=== PATIENT | female | born 1965 | race Caucasian/White ===

== ENCOUNTER 2018-01-21 09:26 | Emergency (ER) | payer MEDICAID ==
[~2018-01-21] VITALS: Ht 165.1 cm; Wt 165.0 kg
[~2018-01-21 09:26] MED LIST: GLUCTAB PO; IBUP800T23 PO
[2018-01-21 09:48] VITALS: BP 219/101; PULSE 100; RESP 20; TEMP 98; O2SAT 97
--- NOTE | 2018-01-21 11:57 | PD ---
HPI . miscarriage Chief Complaint: Related Problem Time Seen by Provider: 11:44 Travel History International Travel<30 days: No Contact w/Intl Traveler<30days: No Traveled to known affect area: No History of Present Illness HPI Miscarriage on 01/05. No bleeding. Continued pelvic pain. PFSH Past Medical History Cardiomyopathy: Yes High Cholesterol: Yes COPD: Yes (chronic bronchitis) Diabetes: Yes Patient Takes Glucophage: No Hypertension: Yes (takes no meds) Reproductive: Yes (hx pneumonia) Respiratory: Yes (BREATHING PROBLEMS FROM OBESITY) Thyroid Disease: Yes ?: Not LMP: 07/2018 : 3 Para: 3 Tubal Ligation: Yes Past Surgical History Abdominal Surgery: Yes Section: Yes (x 3) Social History Alcohol Use: No Tobacco Use: No Substance Use: No Allergies-Medications (Allergen,Severity, Reaction): Coded Allergies: No Known Allergies (Verified Adverse Reaction, Unknown, 01/21/18) Reported Meds & Prescriptions Reported Meds & Active Scripts Active Physical Exam Narrative GENERAL: Markedly obese. No acute distress. SKIN: warm/dry. HEAD: Normocephalic. Atraumatic. EYES: Pupils equal and round. No scleral icterus. No injection or drainage. ENT: No nasal bleeding or discharge. Mucous membranes pink and moist. NECK: Trachea midline. Full range of motion without pain.. CARDIOVASCULAR: Regular rate and rhythm. RESPIRATORY: No accessory muscle use. Clear to auscultation. Breath sounds equal bilaterally. GASTROINTESTINAL: Abdomen soft. Nontender. Bowel sounds present. Nondistended. MUSCULOSKELETAL: No obvious deformities. NEUROLOGICAL: Awake and alert. No obvious cranial nerve deficits. Motor grossly within normal limits. Normal speech. PSYCHIATRIC: Appropriate mood and affect; insight and judgment normal. Data Data Last Documented VS Vital Signs Date Time Temp Pulse Resp B/P (MAP) Pulse Ox O2 Delivery O2 Flow Rate FiO2 01/21/18 09:48 98.0 100 20 219/101 (140) 97 Orders Orders Urinalysis - C+S If Indicated (01/21/18 11:55) Beta Hcg (Quant/Titer) (01/21/18 11:55) Complete Blood Count With Diff (01/21/18 11:55) Basic Metabolic Panel (Bmp) (01/21/18 11:55) Cath For Specimen (01/21/18 13:50) Labs Laboratory Tests Test 01/21/18 12:12 01/21/18 14:12 White Blood Count 9.3 TH/MM3 Red Blood Count 4.87 MIL/MM3 Hemoglobin 14.8 GM/DL Hematocrit 43.4 % Mean Corpuscular Volume 89.2 FL Mean Corpuscular Hemoglobin 30.3 PG Mean Corpuscular Hemoglobin Concent 34.0 % Red Cell Distribution Width 13.3 % Platelet Count 248 TH/MM3 Mean Platelet Volume 9.5 FL Neutrophils (%) (Auto) 62.2 % Lymphocytes (%) (Auto) 30.6 % Monocytes (%) (Auto) 5.7 % Eosinophils (%) (Auto) 0.4 % Basophils (%) (Auto) 1.1 % Neutrophils # (Auto) 5.8 TH/MM3 Lymphocytes # (Auto) 2.8 TH/MM3 Monocytes # (Auto) 0.5 TH/MM3 Eosinophils # (Auto) 0.0 TH/MM3 Basophils # (Auto) 0.1 TH/MM3 CBC Comment DIFF FINAL Differential Comment Blood Urea Nitrogen 10 MG/DL Creatinine 0.80 MG/DL Random Glucose 278 MG/DL Calcium Level 8.9 MG/DL Sodium Level 137 MEQ/L Potassium Level 4.1 MEQ/L Chloride Level 105 MEQ/L Carbon Dioxide Level 21.2 MEQ/L Anion Gap 11 MEQ/L Estimat Glomerular Filtration Rate 76 ML/MIN Human Chorionic Gonadotropin, Quant LESS THAN 1 MIU/ML Urine Color YELLOW Urine Turbidity CLEAR Urine pH 5.5 Urine Specific [place] 1.018 Urine Protein NEG mg/dL Urine Glucose (UA) 1000 mg/dL Urine Ketones NEG mg/dL Urine Occult Blood NEG Urine Nitrite NEG Urine Bilirubin NEG Urine Urobilinogen LESS THAN 2.0 MG/DL Urine Leukocyte Esterase TRACE Urine WBC 7 /hpf Urine Squamous Epithelial Cells 1 /hpf Microscopic Urinalysis Comment CULT NOT INDICATED MDM Medical Decision Making Medical Screen Exam Complete: Yes Emergency Medical Condition: Yes Differential Diagnosis retained products of conception, UTI, PID Narrative Course Patient presents for eval 16 days s/p spontaneous AB. No bleeding. Continued pelvic pain (multiple other complaints). will check quant, CBC, UA. CBC & BMP Diagram 01/21/18 12:12 Calcium Level 8.9 quant < 1 This patient has no laboratory evidence of a complication related to her miscarriage such as anemia or retained products of conception. That is, her H& H is normal and her quantitative hCG is negative. You would expect the quantitative hCG to still be positive if she had retained products. UA is neg for infection. Diagnosis Primary Impression: Spontaneous miscarriage Patient Instructions: General Instructions, Miscarriage (DC) Disposition: 01 DISCHARGE HOME Condition: Stable Deepa Lainez MD Jan 21, 2018 11:57
[2018-01-21 12:55] LABS: AUTOMATED NEUTROPHIL # 5.8 TH/MM3 (1.8-7.7); BASOPHIL # 0.1 TH/MM3 (0-0.2); BASOPHIL % 1.1 % (0.0-2.0); EOSINOPHIL % 0.4 % (0.0-4.0); HEMATOCRIT 43.4 % (35.0-46.0); HEMOGLOBIN 14.8 GM/DL (11.6-15.3); LYMPH % 30.6 % (9.0-44.0); LYMPHOCYTE # 2.8 TH/MM3 (1.0-4.8); MEAN CELL VOLUME 89.2 FL (80.0-100.0); MEAN CORPUSCULAR HEMOGLOBIN 30.3 PG (27.0-34.0); MEAN PLATELET VOLUME 9.5 FL (7.0-11.0); MONO % 5.7 % (0.0-8.0); MONOCYTE # 0.5 TH/MM3 (0-0.9); NEUT % 62.2 % (16.0-70.0); PLATELET COUNT 248 TH/MM3 (150-450); RED BLOOD COUNT 4.87 MIL/MM3 (4.00-5.30); RED CELL DISTRIBUTION WIDTH 13.3 % (11.6-17.2); WHITE BLOOD COUNT 9.3 TH/MM3 (4.0-11.0)
[2018-01-21 13:14] LABS: BICARBONATE 21.2 MEQ/L (21.0-32.0); BLOOD UREA NITROGEN 10 MG/DL (7-18); CALCIUM 8.9 MG/DL (8.5-10.1); CHLORIDE 105 MEQ/L (98-107); GLOMERULAR FILTRATION RATE 76 ML/MIN (>89); GLUCOSE,RANDOM 278 MG/DL (74-106); SODIUM (NA) 137 MEQ/L (136-145)
[2018-01-21 15:18] LABS: BILIRUBIN, URINE NEG (NEG); BLOOD, URINE NEG (NEG); GLUCOSE,URINE 1000 mg/dL (NEG); KETONE, URINE NEG (NEG); NITRITE,URINE NEG (NEG); PH, URINE 5.5 (5.0-8.5); SQUAMOUS EPITHELIAL CELL URINE 1 /hpf (0-5); URINE COLOR YELLOW (YELLW/STRAW); URINE LEUKOCYTE ESTERASE TRACE (NEG)
== END 2018-01-21 16:38 | disposition home or self-care (01) ==
LOC: NEPD 09:26
DX: O03.9 Complete or unspecified spontaneous abortion without complication (principal); I42.9 Cardiomyopathy, unspecified; E78.00 Pure hypercholesterolemia, unspecified; J44.9 Chronic obstructive pulmonary disease, unspecified; E11.9 Type 2 diabetes mellitus without complications; I10 Essential (primary) hypertension; E07.9 Disorder of thyroid, unspecified
CPT/HCPCS: 80048; 81001; 84702; 85025; 99283